=== PATIENT | female | born 1995 | race Caucasian/White ===

== ENCOUNTER 2024-05-24 09:49 | Outpatient (CLI) | payer OTHER, SELFPAY ==
--- NOTE | ~2024-05-24 | US_ITS ---
EXAMINATION: US OB /maternal detail DATE: 05/24/2024 10:28 INDICATION: anatomic survey. TECHNIQUE: Real-time ultrasound of the pelvis was performed. COMPARISON: None. FINDINGS: There is a single living fetus in vertex presentation. The placenta is fundal. heart rate is 1 57 beats per minute (bpm). The cervical length is 3.7 cm on transabdominal images, which is normal. T he amniotic fluid volume is subjectively normal. The following biometric data were obtained: Biparietal diameter (BPD): 4.5 cm; head circumference (HC): 16.8 cm; abdominal circumference (AC): 15 .0 cm; femur length (FL): 3.1 cm. These measurements are concordant. Estimated weight is 319 g +/- 48 g, which correlates with the 72nd percentile when 10/15/24 is u sed as estimated date of delivery. As single measurements, these parameters are each equal to the following estimated gestational ages: BPD: 19 weeks 5 days. HC: 19 weeks 3 days. AC: 20 weeks 1 days. FL: 19 weeks 4 days. estimated gestational age based solely on measurements from this exam is 19 weeks 5 days +/- 1 weeks 3 days. The cerebral ventricles, cerebellum, cisterna magna, nuchal fold, and spine are normal. The heart is normal. The diaphragm, stomach, kidneys, and bladder are normal. There are two umbilical arteries to yield a 3-vessel cord. The cord insertion is normal. IMPRESSION: 1. Single living fetus in vertex presentation. 2. Estimated weight is 319 g +/- 48 g, which correlates with the 72nd percentile when 10/15/24 is used as estimated date of delivery. 3. Normal anatomic survey. Reviewed, dictated and finalized at location A. [employer] IMPRESSION: 1. Single living fetus in vertex presentation. 2. Estimated weight is 319 g +/- 48 g, which correlates with the 72nd pe rcentile when 10/15/24 is used as estimated date of delivery. 3. Normal anatomic survey.
== END 2024-05-24 09:50 | disposition home or self-care (01) ==
PROVIDERS: PCP Advanced Practice Midwife; Visit Provider Advanced Practice Midwife
DX: Z36.9 Encounter for antenatal screening, unspecified (principal)
CPT/HCPCS: 76805